=== PATIENT | female | born 1955 | race Asian ===

== ENCOUNTER 2018-03-28 06:35 | Emergency (ER) | payer BC ==
[~2018-03-28] VITALS: Ht 157.5 cm; Wt 68.0 kg
[2018-03-28 06:43] VITALS: BP 182/81; PULSE 85; RESP 18; TEMP 99.8; O2SAT 98
[2018-03-28] MEDS ORDERED: ATOR20TA15 PO (07:13)
[2018-03-28] MEDS ORDERED: OMEP20TA93 PO (07:13)
[2018-03-28] MEDS ORDERED: LEVO25TA4 PO (07:13)
[2018-03-28] MEDS ORDERED: ORPHENADRINE INJ 60 MG/2 ML AMP IM ONE (07:45)
[2018-03-28] MEDS ORDERED: KETOROLAC TROMETHAMINE 60 MG/2 ML (IM) VIAL IM ONE (07:45)
--- NOTE | 2018-03-28 07:57 | PD ---
HPI Chief Complaint: Back/ Neck Pain or Injury Time Seen by Provider: 07:18 Travel History International Travel<30 days: No Contact w/Intl Traveler<30days: No Traveled to known affect area: No History of Present Illness HPI 62-year-old female presents emergency department status post slip and fall last evening. Patient is here with worsening back pain which he describes as sharp and spasming across the upper lumbar region. Patient states she slipped wearing her sandals causing her to fall. Patient denies injury to the lower extremities, hips or buttocks. She states she has not taken anything for it. She states she had difficulty sleeping secondary to her pain last evening. She denies numbness, tingling, or changes in bowels or bladder. She denies head injury or neck pain. She is allergic to penicillin and sulfa. PFSH Past Medical History Arthritis: Yes (osteoarthritis) Cancer: Yes (breast CA) High Cholesterol: Yes Diminished Hearing: No GERD: Yes Thyroid Disease: Yes (hypo) Tetanus Vaccination: Unknown Influenza Vaccination: Yes ?: Not LMP: menapause Past Surgical History Gynecologic Surgery: Yes (right lumpectomy) Other Surgery: Yes (infusaport placement and removal) Social History Alcohol Use: Yes (2-3x week) Tobacco Use: No Substance Use: No Allergies-Medications (Allergen,Severity, Reaction): Coded Allergies: Penicillins (Verified Allergy, Severe, 03/28/18) hives Sulfa (Sulfonamide Antibiotics) (Verified Allergy, Severe, 03/28/18) hives Reported Meds & Prescriptions Reported Meds & Active Scripts Active Calcitonin ([place]) Nasal [place] (Calcitonin [place]) 200 Unit/Act [place] 1 [place] NASAL DAILY Alternate nostrils daily. Orphenadrine CR (Orphenadrine Citrate) 100 Mg Tab 100 Mg PO Q12HR Hydrocodone-Acetaminophen 5-325 mg Tab 1 Tab PO Q6H PRN Reported Levothyroxine (Levothyroxine Sodium) 25 Mcg Tab 25 Mcg PO DAILY Atorvastatin (Atorvastatin Calcium) 20 Mg Tab 20 Mg PO HS Omeprazole 20 Mg Tab 20 Mg PO DAILY Review of Systems Except as stated in HPI: all other systems reviewed are Neg General / Constitutional: No: Fever Eyes: No: Visual changes HENT: No: Headaches Cardiovascular: No: Chest Pain or Discomfort Respiratory: No: Shortness of Breath Gastrointestinal: No: Abdominal Pain Genitourinary: No: Dysuria Musculoskeletal: Positive: Myalgias, Arthralgias, Limited ROM, Pain (See history of present illness) Skin: No Rash Neurologic: No: Weakness Psychiatric: No: Depression Endocrine: No: Polydipsia Hematologic/Lymphatic: No: Easy Bruising Physical Exam Narrative GENERAL: Patient appears in moderate distress. SKIN: Warm and dry. Normal color. Normal turgor. No signs of trauma. HEAD: Atraumatic. Normocephalic. Nontender. EYES: Pupils equal and round. No scleral icterus. No injection or drainage. ENT: No nasal bleeding or discharge. Mucous membranes pink and moist. Pharynx is clear. Airway is patent. NECK: Trachea midline. Supple and nontender.. CARDIOVASCULAR: Regular rate and rhythm. RESPIRATORY: No accessory muscle use. Clear to auscultation. Breath sounds equal bilaterally. GASTROINTESTINAL: Abdomen soft, non-tender, nondistended. Hepatic and splenic margins not palpable. MUSCULOSKELETAL: Extremities without clubbing, cyanosis, or edema. No obvious deformities. Patient has no central line bony tenderness to the lumbar or thoracic spine. Patient has normal movement of the lower extremities. She has negative straight leg raise pain. Deep tendon reflexes are 2+ equally bilaterally. Patient has soft tissue tenderness across the mid to upper lumbar spine with muscle spasm noted. NEUROLOGICAL: Awake and alert. No obvious cranial nerve deficits. Motor grossly within normal limits. Five out of 5 muscle strength in the arms and legs. Normal speech. PSYCHIATRIC: Appropriate mood and affect; insight and judgment normal. Data Data Last Documented VS Vital Signs Date Time Temp Pulse Resp B/P (MAP) Pulse Ox O2 Delivery O2 Flow Rate FiO2 03/28/18 06:43 99.8 85 18 182/81 (114) 98 Orders Orders Ketorolac Inj (Toradol Inj) (03/28/18 07:45) Orphenadrine Inj (Norflex Inj) (03/28/18 07:45) Spine, Lumbar - Ltd (Ap & Lat) (03/28/18 07:34) LSO (03/28/18 ) [employer] Request For Service (03/28/18 09:38) [facility] Medical Decision Making Medical Screen Exam Complete: Yes Emergency Medical Condition: Yes Differential Diagnosis Slip and fall. Lumbar strain. Muscle spasm. Narrative Course Patient is medically stable at time of exam. Patient is given Toradol 60 mg IM. Patient is given Norflex 60 mg IM. X-rays of the lumbar spine AP and lateral are ordered. X-ray shows: FINDINGS: A plcc-tp-[id number] compression deformity with inferior endplate depression is noted of the L1 vertebral body. Vertebral bodies are otherwise intact. Mild degenerative disc disease with spondylosis is noted at L4-5. Posterior elements are intact. Mild facet arthropathy is noted. Patient was placed in a DAIRY NUTRITIONIST brace. Patient started on Miacalcin nasal spray daily #30. Patient given hydrocodone 5/325 one every 6 hours as needed pain #20 Patient given Norflex 100 mg twice daily as needed muscle spasm #60 Patient to follow-up with Dr. Chao, the orthopedist personalized living assistant to ensure healing. Diagnosis Primary Impression: Vertebral compression fracture Referrals: Gonzalo Chao MD call for appointment Patient Instructions: General Instructions, Lumbar Brace (DC), Vertebral Compression Fracture (ED) Additional Instructions: X-ray shows: FINDINGS: A jang-mn-ldhxrmey compression deformity with inferior endplate depression is noted of the L1 vertebral body. Vertebral bodies are otherwise intact. Mild degenerative disc disease with spondylosis is noted at L4-5. Posterior elements are intact. Mild facet arthropathy is noted. Patient was placed in a DAIRY NUTRITIONIST brace. Patient started on Miacalcin nasal spray daily #30. Patient given hydrocodone 5/325 one every 6 hours as needed pain #20 Patient given Norflex 100 mg twice daily as needed muscle spasm #60 Patient to follow-up with Dr. Chao, the orthopedist personalized living assistant to ensure healing. Scripts Calcitonin ([place]) Nasal [place] (Calcitonin ([place]) Nasal [place]) 200 Unit/Act [place] 1 SPRAY NASAL DAILY, #3.7 ML Alternate nostrils daily. Prov: Soy Burgos MD 03/28/18 Orphenadrine ER 12 HR (Orphenadrine CR) 100 Mg Tab 100 MG PO Q12HR for Muscle Spasm, #60 TAB 0 Refills Prov: Soy Burgos MD 03/28/18 Hydrocodone-Acetaminophen (Hydrocodone-Acetaminophen) 5-325 mg Tab 1 TAB PO Q6H Y for PAIN, #20 TAB 0 Refills Prov: Soy Burgos MD 03/28/18 Disposition: 01 DISCHARGE HOME Condition: Stable Chaz Lott March 28, 2018 07:57
--- NOTE | 2018-03-28 08:48 | RADRPT ---
EXAM DATE: 03/28/2018 8:41 AM EDT AGE/SEX: 62 years / Female INDICATIONS: Low back pain, post fall. CLINICAL DATA: This is the patient's initial encounter. Patient reports that signs and symptoms have been present for 1 day and indicates a pain score of 8/10. MEDICAL/SURGICAL HISTORY: None. None. COMPARISON: No prior [facility] exams available for comparison. FINDINGS: A oydw-ii-xncswqlf compression deformity with inferior endplate depression is noted of the L1 vertebr al body. Vertebral bodies are otherwise intact. Mild degenerative disc disease with spondylosis is noted at L4-5. Posterior elements are intact. Mild facet arthropathy is noted. CONCLUSION: Acute compression fracture of L1 Mild degenerative disc disease and facet arthropathy. Electronically signed by: Bethel Franco MD 03/28/2018 8:46 AM EDT
[2018-03-28] MEDS ORDERED: ORPH100T2 PO (09:42)
[2018-03-28] MEDS ORDERED: HYDR-3516 PO (09:42)
[2018-03-28] MEDS ORDERED: CALC200S NASAL (09:42)
== END 2018-03-28 10:19 | disposition home or self-care (01) ==
LOC: NEPD 06:35
DX: S32.018A Other fracture of first lumbar vertebra, initial encounter for closed fracture (principal); W01.0XXA Fall on same level from slipping, tripping and stumbling without subsequent striking against object, initial encounter
CPT/HCPCS: 72100; 96372; 99283; J1885; J2360; L0484